=== PATIENT | female | born 1995 | race Caucasian/White ===

== ENCOUNTER → 2020-12-09 13:04 | Outpatient (BNVA) | payer OTHER, MEDICAID, SELFPAY | PROVIDERS: Family Provider Family Medicine; PCP Nurse Practitioner Family; Visit Provider Internal Medicine | DX: E03.9 Hypothyroidism, unspecified (principal); R76.8 Other specified abnormal immunological findings in serum; Z11.59 Encounter for screening for other viral diseases; R21 Rash and other nonspecific skin eruption; R13.10 Dysphagia, unspecified; Z79.899 Other long term (current) drug therapy | CPT/HCPCS: 36415; 80053; 81003; 82784; 83516; 83735; 85025; 86160; 86704; 86803; 87340; 99204 ==

== ENCOUNTER → 2023-08-03 09:41 | Outpatient (BNVA) | payer MEDICAID, SELFPAY | PROVIDERS: Family Provider Family Medicine; PCP Registered Nurse; Visit Provider Registered Nurse | DX: E03.9 Hypothyroidism, unspecified (principal) | CPT/HCPCS: 80053; 84439; 84443; 85025 ==

== ENCOUNTER → 2023-09-28 16:29 | Outpatient (BNVA) | payer MEDICAID, SELFPAY | PROVIDERS: Family Provider Family Medicine; PCP Registered Nurse; Visit Provider Nurse Practitioner Women's Health | DX: Z11.3 Encounter for screening for infections with a predominantly sexual mode of transmission (principal); Z12.4 Encounter for screening for malignant neoplasm of cervix | CPT/HCPCS: 86592; 86803; 87340; 87491; 87591; 87806; 88175 ==

== ENCOUNTER → 2023-10-09 14:10 | Outpatient (BNVA) | payer MEDICAID, SELFPAY | PROVIDERS: Family Provider Family Medicine; PCP Registered Nurse; Visit Provider Podiatrist Foot & Ankle Surgery | DX: M79.671 Pain in right foot (principal); M79.672 Pain in left foot; M72.2 Plantar fascial fibromatosis | CPT/HCPCS: 73630 ==

== ENCOUNTER → 2023-10-26 13:33 | Outpatient (BNVA) | payer MEDICAID, SELFPAY | PROVIDERS: Family Provider Family Medicine; PCP Registered Nurse; Referring Provider Registered Nurse; Visit Provider Internal Medicine | DX: E03.8 Other specified hypothyroidism (principal); E06.3 Autoimmune thyroiditis | CPT/HCPCS: 84439; 84443 ==

== ENCOUNTER → 2024-02-29 08:40 | Outpatient (BNVA) | payer MEDICAID, SELFPAY | PROVIDERS: Family Provider Family Medicine; PCP Registered Nurse; Visit Provider Internal Medicine | DX: E06.3 Autoimmune thyroiditis (principal); E03.8 Other specified hypothyroidism | CPT/HCPCS: 36415; 84439; 84443 ==

== ENCOUNTER 2024-08-26 15:56 | Outpatient (CLI) | payer MEDICAID, SELFPAY ==
[2024-08-26 22:59] LABS: Free T4 Free Thyroxine 1.06 ng/dL (0.82-1.77); Thyroid Stimulating Hormone 3.68 uIU/mL (0.27-4.20)
== END 2024-08-26 15:57 | disposition home or self-care (01) ==
PROVIDERS: Visit Provider Internal Medicine
DX: F41.9 Anxiety disorder, unspecified (principal); E04.9 Nontoxic goiter, unspecified; E06.3 Autoimmune thyroiditis; E03.8 Other specified hypothyroidism
CPT/HCPCS: 36415; 84439; 84443

== ENCOUNTER 2024-09-15 10:41 | Outpatient (CLI) | payer MEDICAID, SELFPAY ==
--- NOTE | 2024-09-15 10:45 | US_ITS ---
WS: [id number] THYROID ULTRASOUND HISTORY: Hypothyroidism. COMPARISON: 11/28/2013 Right lobe: 1.2 cm x 1.4 cm x 3.9 cm (w x ap x l). Volume: 3.2 cm3. Heterogeneous coarse gland. The gland has significantly decreased in size since the prior study from 2013. Vascularity has also decreased. Left lobe: 1.2 cm x 1.4 cm x 3.6 cm (w x ap x l). Volume: 2.9 cm3. Small shrunken heterogeneous gland has decreased in size since the prior examination. Decrease in vascularity. Isthmus: 0.3 cm. US/US thyroid [id number] IMPRESSION: 1. Thyroid gland is markedly decreased in size since the prior examination 2013 with decreased in hypervascularity. Consistent with prior Sanket's di sease which has since resolved. 2. Heterogeneous gland but no discrete mass.
== END 2024-09-15 10:42 | disposition home or self-care (01) ==
LOC: RAD 10:42
PROVIDERS: PCP Nurse Practitioner Family; Visit Provider Internal Medicine
DX: F41.9 Anxiety disorder, unspecified (principal); E04.9 Nontoxic goiter, unspecified; E06.3 Autoimmune thyroiditis; E03.8 Other specified hypothyroidism; R93.89 Abnormal findings on diagnostic imaging of other specified body structures
CPT/HCPCS: 76536

== ENCOUNTER 2024-10-10 15:20 | Outpatient (CLI) | payer MEDICAID, SELFPAY ==
[2024-10-10 16:51] LABS: Free T4 Free Thyroxine 1.34 ng/dL (0.82-1.77); Thyroid Stimulating Hormone 0.16 uIU/mL (0.27-4.20)
== END 2024-10-10 15:21 | disposition home or self-care (01) ==
LOC: LAB 15:22
PROVIDERS: PCP Nurse Practitioner Family; Visit Provider Internal Medicine
DX: F41.9 Anxiety disorder, unspecified (principal); E04.9 Nontoxic goiter, unspecified; E06.3 Autoimmune thyroiditis; E03.8 Other specified hypothyroidism
CPT/HCPCS: 36415; 84439; 84443

== ENCOUNTER 2024-11-27 08:02 | Outpatient (CLI) | payer MEDICAID, SELFPAY ==
[2024-11-27 09:51] LABS: Free T4 Free Thyroxine 1.29 ng/dL (0.82-1.77); Thyroid Stimulating Hormone 2.41 uIU/mL (0.27-4.20)
== END 2024-11-27 08:03 | disposition home or self-care (01) ==
PROVIDERS: PCP Nurse Practitioner Family; Visit Provider Internal Medicine
DX: E06.3 Autoimmune thyroiditis (principal)
CPT/HCPCS: 36415; 84439; 84443

== ENCOUNTER 2024-12-17 08:19 | Outpatient (CLI) | payer MEDICAID, SELFPAY ==
--- NOTE | 2024-12-17 | FL_ITS ---
NC barium swallow [id number] REASON FOR EXAM: GERD W/O ESOPHAGITIS FLUOROSCOPY TIME: 1min [id number] # OF SPOT FILMS: Multiple TECHNIQUE: Patient was examined in the standing upright in the lateral position, prone MEDELLIN, and supine. Swallowing of barium was monitored fluoroscopically and recorded with multiple rapid sequence spot films. Patient was examined from the oropharynx to the stomach. FINDINGS: No aspiration or penetration of contrast into the laryngeal vestibule. Thoracic esophagus demonstrated normal motility and anatomy. No hiatal hernia or reflux demonstrated. IMPRESSION: No significant abnormality MTDD
== END 2024-12-17 08:20 | disposition home or self-care (01) ==
LOC: RAD 08:21
PROVIDERS: PCP Nurse Practitioner Family; Visit Provider Nurse Practitioner Family
DX: K21.9 Gastro-esophageal reflux disease without esophagitis (principal)
CPT/HCPCS: 74220

== ENCOUNTER → 2025-01-28 15:47 | Outpatient (BNVA) | payer MEDICAID, SELFPAY | PROVIDERS: Family Provider Family Medicine; PCP Nurse Practitioner Family; Visit Provider Internal Medicine Cardiovascular Disease | DX: R07.9 Chest pain, unspecified (principal) | CPT/HCPCS: 93005 ==

== ENCOUNTER 2025-03-02 09:03 | Outpatient (CLI) | payer MEDICAID, SELFPAY | END 2025-03-02 09:04 | disposition home or self-care (01) | LOC: RAD 09:05 | PROVIDERS: PCP Nurse Practitioner Family; Visit Provider Internal Medicine Cardiovascular Disease | DX: R94.31 Abnormal electrocardiogram [ECG] [EKG] (principal) | CPT/HCPCS: 93306 ==